=== PATIENT | male | born 1985 | race Caucasian/White ===

== ENCOUNTER 2023-12-26 16:09 | Outpatient (CLI) | payer OTHER, SELFPAY ==
--- NOTE | ~2023-12-26 | XR_ITS ---
EXAMINATION: XR mandible min 4V DATE: 12/26/2023 16:37 INDICATION: Left mandibular pain TECHNIQUE: AP, Lauro and left and right oblique views of the mandible were obtained. COMPARISON: None. FINDINGS: Mandible is in normal alignment. Angulation of the nasal bone seen on the left oblique view of the ma ndible without overlying soft tissue swelling consistent with likely chronic fracture. No other acute fracture identified. Mastoid air cells and paranasal sinuses appear well aerated with no evident air -fluid levels. Visualized apices of lungs are clear. IMPRESSION: 1. Likely chronic nasal bone fracture. Otherwise negative mandible radiographs. Reviewed, dictated and finalized at location A.
== END 2023-12-26 16:10 | disposition home or self-care (01) ==
LOC: ANHIMG 16:12
PROVIDERS: PCP Internal Medicine; Visit Provider Internal Medicine
DX: R51.9 Headache, unspecified (principal)
CPT/HCPCS: 70110

== ENCOUNTER 2024-07-30 14:22 | Outpatient (CLI) | payer OTHER, SELFPAY ==
--- NOTE | ~2024-07-30 | US_ITS ---
US scrotum doppler INDICATION: Scrotal pain TECHNIQUE: Testicular sonogram utilizing grayscale and color Doppler FINDINGS: The testes are normal in size and appearance. No focal lesions are seen. The right testes measures 4 x 2.2 x 2.9 cm centimeters, and the left testis measures 4.2 x 2.1 x 3.1 cm cm. There is n ormal vascular flow to both testes. The right and left epididymides appear normal. There are bilateral hydroceles. There are bilateral varicoceles. IMPRESSION: 1. Bilateral varicoceles. 2: Small hydroceles. Reviewed, dictated and finalized at location B.
== END 2024-07-30 14:23 | disposition home or self-care (01) ==
PROVIDERS: PCP Internal Medicine; Visit Provider Internal Medicine
DX: I86.1 Scrotal varices (principal); N43.2 Other hydrocele
CPT/HCPCS: 76870; 93976

== ENCOUNTER 2024-09-11 14:33 | Outpatient (CLI) | payer OTHER, SELFPAY ==
--- NOTE | ~2024-09-11 | CT_ITS ---
CT of the Abdomen and Pelvis: Indication: Abdominal pain Technique: 2.5 mm axial scans were obtained through the abdomen and pelvis following intravenous adm inistration of 100 cc of Omnipaque 350. Dose reduction technique was used on this scan by utilizing a utomated exposure control and iterative reconstruction technique. The dose-length product (DLP) was 7 53.56 mGy-cm. Findings: Scans through the lung bases are unremarkable. The liver, spleen, pancreas, gallbladder, adrenals and kidneys are within normal limits. No evidence of aortic aneurysm. No lymphadenopathy. No bowel obstruction or bowel wall thickening. There is no evidence to suggest acute appendicitis. Images through the pelvis were performed. Urinary bladder unremarkable. No pelvic mass seen. No ascit es. Impression: No significant abnormalities seen. Reviewed, dictated and finalized at [facility]. [facility] Impression: No significant abnormalities seen.
[2024-09-11 15:03] LABS: Estimated Glomerular Filt Rate > 60
== END 2024-09-11 14:34 | disposition home or self-care (01) ==
PROVIDERS: PCP Internal Medicine; Visit Provider Internal Medicine
DX: R10.9 Unspecified abdominal pain (principal)
CPT/HCPCS: 74177; Q9967

== ENCOUNTER 2024-10-08 15:48 | Outpatient (CLI) | payer OTHER, SELFPAY ==
--- NOTE | ~2024-10-08 | XR_ITS ---
XR knee LT 3V Ordering provider: Abhay Lyons, History: . Pain in lt knee . Comparison: None. FINDINGS: BONES: No acute fracture or dislocation. JOINT SPACES: Normal. SOFT TISSUES: Normal. IMPRESSION: No acute osseous abnormality left knee. Reviewed, dictated and finalized at location A. [facility]
== END 2024-10-08 15:49 | disposition home or self-care (01) ==
LOC: ANHIMG 15:50
PROVIDERS: PCP Internal Medicine; Visit Provider Internal Medicine
DX: M25.562 Pain in left knee (principal)
CPT/HCPCS: 73562